=== PATIENT | male | born 1990 | race Caucasian/White ===

== ENCOUNTER 2021-01-28 21:41 | Emergency (ER) | payer MEDICAID ==
[~2021-01-28] VITALS: Ht 175.3 cm; Wt 71.2 kg
[2021-01-28 21:50] VITALS: BP_SYST 143
--- NOTE | 2021-01-28 22:34 | NUR ---
Patient to ER CHAIR for evaluation. Report given to ELDON GUARDADO.
--- NOTE | 2021-01-28 22:37 | NUR ---
Patient BIB by family from home. C/O right knee pain x today. Patient reported, hit the brinks ~ 2029 PM today. A/O,X4, right knee pain, swelling, abrasion, bleeding control.
--- NOTE | 2021-01-28 22:44 | NUR ---
Clean right knee abrasion wound with NSS.
--- NOTE | 2021-01-28 22:51 | NUR ---
Patient came back from radiology department.
[2021-01-28] MEDS ORDERED: BACITRACIN 1 GM OINT TP ONE (23:33)
--- NOTE | 2021-01-28 23:44 | NUR ---
ER Dr. Tan at bedside examining patient.
--- NOTE | 2021-01-29 00:02 | NUR ---
Patient given written and verbal discharge instructions and verbalizes understanding. ER MD discussed with patient the results and treatment provided. Patient in stable condition. ID arm band removed. no Rx of given. Patient educated on pain management and to follow up with PMD. Pain Scale 5/10. Opportunity for questions provided and answered. Medication side effect fact sheet provided.
[2021-01-29 00:04] VITALS: BP_SYST 139
== END 2021-01-29 00:04 | disposition home or self-care (01) ==
LOC: SED 21:41
DX: M25.561 Pain in right knee (principal)
CPT/HCPCS: 73564; 99283